=== PATIENT | male | born 1965 | race Caucasian/White ===

== ENCOUNTER 2022-11-28 03:59 | Emergency (ER) | payer BC, OTHER ==
[2022-11-28 04:07] VITALS: TEMP 97.7
[2022-11-28 05:22] LABS: African American GFR (CKD) >90 (>60 ml/min/1.73 sqM); Anion Gap 7 mmol/L; Blood Urea Nitrogen 18 mg/dL (9-20); Calcium 9.6 mg/dL (8.4-10.2); Carbon Dioxide 27 mmol/L (22-30); Chloride 104 mmol/L (98-107); Glucose 97 mg/dL (74-99); Non-African American GFR(CKD) >90 (>60 ml/min/1.73 sqM); Potassium 4.2 mmol/L (3.5-5.1); Sodium 138 mmol/L (137-145)
[2022-11-28 05:32] LABS: Basophils % (A) 0 %; Eosinophils # (A) 0.1 k/uL (0-0.7); Eosinophils % (A) 1 %; HCT 44.4 % (39.0-53.0); Lymphocytes # (A) 1.5 k/uL (1.0-4.8); Lymphocytes % (A) 14 %; MCH 31.5 pg (25.0-35.0); MCHC 33.8 g/dL (31.0-37.0); MCV 93.2 fL (80.0-100.0); Monocytes # (A) 0.7 k/uL (0-1.0); Monocytes % (A) 6 %; Neutrophils # (A) 8.8 k/uL (1.3-7.7); Neutrophils % (A) 78 %; Platelet Count 204 k/uL (150-450); RBC 4.77 m/uL (4.30-5.90); RDW 12.9 % (11.5-15.5); WBC 11.3 k/uL (3.8-10.6)
--- NOTE | 2022-11-28 06:06 | ED ---
Extremity Problem HPI - General Chief complaint: Extremity Problem,Nontraumatic Stated complaint: Blood clot in left leg Time Seen by Provider: 11/28/22 04:26 Source: patient Mode of arrival: ambulatory Limitations: no limitations - History of Present Illness Initial comments: This patient is a 57-year-old man who presents to have evaluation of pain to the left leg just distal to the knee. The patient noted that it came on last night and has been persistent, going on approximately 8 hours now. He is not recalling any type of inciting trauma. Patient indicates medial aspect of the leg just distal to the left knee. No weakness or numbness distal. He is not having any other symptoms, no chest pain, palpitations, dyspnea, hemoptysis. Denies history and risk factors for DVT. MD Complaint: extremity pain Onset/Timin -: hour(s) Location: left, lower extremity History of Same: No Severity scale (1-10): 6 Quality: aching Consistency: constant Improves with: nothing Worsens with: nothing Associated Symptoms: denies other symptoms - Related Data Previous Rx's Medication Instructions Recorded Ciprofloxacin HCl [Cipro] 500 mg PO Q12HR #14 tablet 01/06/15 Hydrocodone/Acetaminophen [[place] 1 each PO Q4HR PRN #20 tablet 01/06/15 10-325 Tablet] Naproxen [Naprosyn] 500 mg PO Q12HR #24 tab 01/06/15 Ondansetron Odt [Zofran Odt] 4 mg PO Q6HR PRN #20 tab 01/06/15 Tamsulosin [Flomax] 0.4 mg PO DAILY #5 cap 01/06/15 Ibuprofen [Motrin] 600 mg PO Q8HR PRN #20 tab 11/28/22 Allergies Allergy/AdvReac Type Severity Reaction Status Date / Time No Known Allergies Allergy Verified 11/28/22 04:03 Review of Systems ROS Statement: Those systems with pertinent positive or pertinent negative responses have been documented in the HPI. ROS Other: All systems not noted in ROS Statement are negative. Constitutional: Denies: fever, chills Respiratory: Denies: cough, dyspnea, hemoptysis Cardiovascular: Denies: chest pain, syncope Musculoskeletal: Reports: as per HPI Skin: Denies: rash Neurological: Denies: weakness, numbness, paresthesias Past Medical History Past Medical History: Blood Disorder Additional Past Medical History / Comment(s): factor V History of Any Multi-Drug Resistant Organisms: None Reported Past Surgical History: Hernia Repair, Orthopedic Surgery Additional Past Surgical History / Comment(s): hernia X6, shoulder Past Psychological History: No Psychological Hx Reported Smoking Status: Current every day smoker Past Alcohol Use History: Occasional Past Drug Use History: None Reported General Exam Limitations: no limitations General appearance: alert, in no apparent distress Respiratory exam: Present: normal lung sounds bilaterally. Absent: respiratory distress, wheezes, rales, rhonchi, stridor, accessory muscle use Cardiovascular Exam: Present: regular rate, normal rhythm, normal heart sounds. Absent: systolic murmur, diastolic murmur, rubs, gallop Left Upper Leg exam: Present: normal inspection, full ROM. Absent: tenderness, swelling Knee exam: Present: normal inspection, full ROM. Absent: tenderness, swelling Lower Leg exam: Present: normal inspection, full ROM, tenderness, swelling. Absent: abrasion, laceration, ecchymosis, deformity, crepitus, dislocation, erythema, palpable cord, Homans' sign Ankle exam: Present: normal inspection, full ROM. Absent: tenderness, swelling Foot/Toe exam: Present: normal inspection, full ROM. Absent: tenderness, swelling Neurovascular tendon exam: Present: no vascular compromise. Absent: pulse deficit, abnormal cap refill, motor deficit, sensory deficit, tendon deficit Neurological exam: Present: alert. Absent: motor sensory deficit Skin exam: Present: warm, dry, intact, normal color. Absent: rash Course Vital Signs 11/28/22 11/28/22 04:03 06:17 Temperature 97.7 F Pulse Rate 103 H 89 Respiratory 16 17 Rate Blood Pressure 196/99 180/80 O2 Sat by Pulse 98 99 Oximetry Medical Decision Making - Medical Decision Making This patient is 57-year-old man here to have evaluation of left leg pain. Screening test for DVT is run and is negative. The physical exam is not suggestive of DVT. There is tenderness to the anteromedial aspect of the upper portion of the lower leg. The differential diagnosis for the pain includes DVT for which the screening test is negative and the history is not very suggestive of, infection, but the patient does not have erythema or warmth. There is no ev idence of joint involvement as there is good range of motion and no effusion. Will start conservative therapy and have patient follow-up. Discussed return parameters, including development of fever or chills, any neurovascular signs or symptoms, worsening pain or swelling among other symptoms. Was pt. sent in by a medical professional or institution? @ -No Did you speak to anyone other than the patient for history? @ -[no Did you review nursing and triage notes? @ -[agree Were old charts reviewed? @ -[no Differential Diagnosis? @ -The differential for this leg pain includes acute traumatic injury, bursitis, cellulitis, DVT, amongst other etiologies EKG interpreted by me (3pts min.)? @ -[ X-rays interpreted by me (1pt min.)? @ - CT interpreted by me (1pt min.)? @ - U/S interpreted by me (1pt. min.)? @ -[none] What testing was considered but not performed? (CT, X-rays, U/S, labs)? Why? @ [ What meds were considered but not given? Why? @ -[none] Did you discuss the management of the patient with other professionals? @ -[No Did you reconcile home meds? @ -[no Was smoking cessation discussed for >3mins.? @ -[no Was critical care preformed (if so, how long)? @ -[none] Were there social determinants of health that impacted care today? How? (Homelessness, low income, unemployed, alcoholism, drug addiction, transportation, low edu. Level, literacy, decrease access to med. care, residential, rehab)? @ -[no Was there de-escalation of care discussed even if they declined? (Discuss DNR or withdrawal of care, Hospice)? @ -[No What co-morbidities impacted this encounter? (DM, HTN, Smoking, COPD, CAD, Cancer, CVA, Hep., AIDS, mental health diagnosis, sleep apnea, morbid obesity)? @ -[none Was patient admitted / discharged? @ -[Discharged Undiagnosed new problem with uncertain prognosis? @ -[none] Drug Therapy requiring intensive monitoring for toxicity (Heparin, Nitro, Insulin, Cardizem)? @ -[none] Were any procedures done? @ -[none] Diagnosis/symptom? @ -[Acute leg pain Acute, or Chronic, or Acute on Chronic? @ -[Acute Uncomplicated (without systemic symptoms) or Complicated (systemic symptoms)? @ -[Uncomplicated Side effects of treatment? @ -[none] Exacerbation, Progression, or Severe Exacerbation] @ -[no] Poses a threat to life or bodily function? @ -[No - Lab Data Result diagrams: 11/28/22 04:44 11/28/22 04:44 Lab Results 11/28/22 11/28/22 11/28/22 Range/Units 04:44 04:44 04:44 WBC 11.3 H (3.8-10.6) k/uL RBC 4.77 (4.30-5.90) m/uL Hgb 15.0 (13.0-17.5) gm/dL Hct 44.4 (39.0-53.0) % MCV 93.2 (80.0-100.0) fL MCH 31.5 (25.0-35.0) pg MCHC 33.8 (31.0-37.0) g/dL RDW 12.9 (11.5-15.5) % Plt Count 204 (150-450) k/uL MPV 7.0 Neutrophils % 78 % Lymphocytes % 14 % Monocytes % 6 % Eosinophils % 1 % Basophils % 0 % Neutrophils # 8.8 H (1.3-7.7) k/uL Lymphocytes # 1.5 (1.0-4.8) k/uL Monocytes # 0.7 (0-1.0) k/uL Eosinophils # 0.1 (0-0.7) k/uL Basophils # 0.0 (0-0.2) k/uL D-Dimer 0.53 (<0.60) mg/L FEU Sodium 138 (137-145) mmol/L Potassium 4.2 (3.5-5.1) mmol/L Chloride 104 (98-107) mmol/L Carbon Dioxide 27 (22-30) mmol/L Anion Gap 7 mmol/L BUN 18 (9-20) mg/dL Creatinine 0.85 (0.66-1.25) mg/dL Est GFR (CKD-EPI)AfAm >90 (>60 ml/min/1.73 sqM) Est GFR (CKD-EPI)NonAf >90 (>60 ml/min/1.73 sqM) Glucose 97 (74-99) mg/dL Calcium 9.6 (8.4-10.2) mg/dL Disposition Clinical Impression: Leg pain Disposition: HOME SELF-CARE Condition: Good Instructions (If sedation given, give patient instructions): Leg Pain (ED) Prescriptions: Ibuprofen [Motrin] 600 mg PO Q8HR PRN #20 tab PRN Reason: Pain Is patient prescribed a controlled substance at d/c from ED?: No Referrals: Lindsay Valadez MD [Primary Care Provider] - 1-2 days
[2022-11-28 06:18] VITALS: BP 180/80; PULSE 89; RESP 17
== END 2022-11-28 06:18 | disposition home or self-care (01) ==
LOC: EC 03:59
DX: M79.605 Pain in left leg (principal); F17.200 Nicotine dependence, unspecified, uncomplicated
CPT/HCPCS: 36415; 80048; 85025; 85379; 99283

== ENCOUNTER → 2024-04-18 | Outpatient (CLI) | payer OTHER ==
--- NOTE | 2024-04-18 19:57 | CA ---
Transthoracic Echo Report Name: Gideon Dyson Age: 58 Gender: M : 1965 Exam Date: 04/18/2024 13:49 Exam Location: [facility] Ht (in): 69 Wt (lb): 194 Ordering Physician: Pro Billy MD Attending/Referring Phys: Hortencia Boss [facility] Optician Apprentice Vandana Rasmussen RDCS Procedure CPT: Indications: R07.9 RIGHT SIDE CHEST PAIN R06.02 SOB Cardiac Hx: Technical Quality: Good Contrast 1: Total Dose (mL): Contrast 2: Total Dose (mL): MEASUREMENTS (Male / Female) Normal Values 2D ECHO LV Diastolic Volume MOD BP 89.0 cm??? 67 - 155 / 56 - 104 cm??? LV Systolic Volume MOD BP 37.4 cm??? 22 - 58 / 19 - 49 cm??? LV Ejection Fraction MOD BP 58.0 % >= 55 % LV Diastolic Volume MOD 4C 97.3 cm??? LV Systolic Volume MOD 4C 39.7 cm??? LV Ejection Fraction MOD 4C 59.2 % LV Diastolic Length 4C 7.9 cm LV Systolic Length 4C 6.5 cm LV Diastolic Volume MOD 2C 78.1 cm??? LV Systolic Volume MOD 2C 35.7 cm??? LV Ejection Fraction MOD 2C 54.2 % LV Diastolic Length 2C 7.6 cm LV Systolic Length 2C 6.4 cm M-MODE Aortic Root Diameter MM 3.6 cm LA Systolic Diameter MM 3.9 cm LA Ao Ratio MM 1.1 AV Cusp Separation MM 2.2 cm DOPPLER Mitral E Point Velocity 56.7 cm/s Mitral A Point Velocity 83.1 cm/s Mitral E to A Ratio 0.7 MV Deceleration Time 269.1 ms MV E' Velocity 5.4 cm/s Mitral E to MV E' Ratio 10.4 TR Peak Velocity 211.7 cm/s TR Peak Gradient 17.9 mmHg FINDINGS Left Ventricle Left ventricular ejection fraction is estimated at 55-60%. No obvious regional wall motion abnormalities. Left ventricular cavity size normal. Left ventricular wall thickness normal. Right Ventricle Normal right ventricular size and function. Right ventricular systolic pressure within normal limits. Right Atrium Normal right atrial size. Left Atrium Normal left atrial size. Mitral Valve Structurally normal mitral valve. Trace mitral regurgitation. Aortic Valve Trileaflet aortic valve. No aortic valve stenosis or regurgitation. Tricuspid Valve Structurally normal tricuspid valve. Trace tricuspid regurgitation. Pulmonic Valve Structurally normal pulmonic valve. Trace pulmonic regurgitation. Pericardium No pericardial or pleural effusion. Aorta Normal size aortic root and proximal ascending aorta. CONCLUSIONS Left ventricular ejection fraction is estimated at 55-60%. No obvious regional wall motion abnormalities. No significant valve dysfunction No significant chamber size abnormality No pericardial effusion Previewed by: Dr Goldy Ware (Electronically Signed) Final Date: 18 April 2024 19:56
== END | disposition home or self-care (01) ==
LOC: RADECHMAIN 13:36
PROVIDERS: ATTEND Family Medicine
DX: R07.9 Chest pain, unspecified (principal); R06.02 Shortness of breath
CPT/HCPCS: 93306

== ENCOUNTER → 2024-04-18 | Outpatient (CLI) | payer OTHER | END | disposition home or self-care (01) | LOC: LABWHC1 14:10 | PROVIDERS: ATTEND Nurse Practitioner Family | DX: R07.9 Chest pain, unspecified (principal); R06.02 Shortness of breath; R94.31 Abnormal electrocardiogram [ECG] [EKG] | CPT/HCPCS: 36415; 93005 ==

== ENCOUNTER 2024-05-04 05:16 | Inpatient (IN) | payer OTHER ==
[2024-05-04] MEDS: MORPHINE SULFATE 4 MG/ML SYRINGE IV STA ×2 (05:44→07:02)
--- NOTE | 2024-05-04 06:02 | XR ---
EXAMINATION TYPE: XR chest 2V DATE OF EXAM: 05/04/2024 COMPARISON: NONE HISTORY: Chest pain TECHNIQUE: Frontal and lateral views of the chest are obtained. FINDINGS: There are patchy bibasilar opacities. The cardiac silhouette size is within normal limits . The osseous structures are intact. IMPRESSION: Bibasilar acute infiltrates and/or atelectasis.
[2024-05-04 06:08] LABS: Basophils % (A) 0 %; Eosinophils # (A) 0.1 k/uL (0-0.7); Eosinophils % (A) 1 %; HCT 46.8 % (39.0-53.0); HGB 15.3 gm/dL (13.0-17.5); Lymphocytes # (A) 1.6 k/uL (1.0-4.8); Lymphocytes % (A) 12 %; MCH 31.2 pg (25.0-35.0); MCHC 32.6 g/dL (31.0-37.0); MCV 95.7 fL (80.0-100.0); Mean Platelet Volume 6.8; Monocytes # (A) 0.7 k/uL (0-1.0); Monocytes % (A) 5 %; Neutrophils # (A) 11.2 k/uL (1.3-7.7); Neutrophils % (A) 82 %; Platelet Count 249 k/uL (150-450); RBC 4.89 m/uL (4.30-5.90); RDW 12.2 % (11.5-15.5); WBC 13.7 k/uL (3.8-10.6)
[2024-05-04 06:22] LABS: ALT 24 U/L (4-49); AST 28 U/L (17-59); African American GFR (CKD) >90 (>60 ml/min/1.73 sqM); Albumin 4.6 g/dL (3.5-5.0); Alkaline Phosphatase 83 U/L (38-126); Anion Gap 9 mmol/L; Blood Urea Nitrogen 18 mg/dL (9-20); Calcium 9.9 mg/dL (8.4-10.2); Carbon Dioxide 28 mmol/L (22-30); Chloride 103 mmol/L (98-107); Glucose 105 mg/dL (74-99); Magnesium 1.8 mg/dL (1.6-2.3); Non-African American GFR(CKD) 89 (>60 ml/min/1.73 sqM); Potassium 4.2 mmol/L (3.5-5.1); Sodium 140 mmol/L (137-145); Total Bilirubin 0.4 mg/dL (0.2-1.3); Total Protein 7.3 g/dL (6.3-8.2)
[2024-05-04 06:30] LABS: INR 0.9 (<1.2); Partial Thromboplastin Time 25.8 sec (22.0-30.0); Prothrombin Time 10.3 sec (10.0-12.5)
[2024-05-04] MEDS: AZITHROMYCIN 500 MG TAB PO STA (06:58)
[2024-05-04] MEDS ORDERED: PNEUMONIA PROTOCOL UTILIZED 1 EACH MISC PO PRN (07:13)
[2024-05-04] MEDS ORDERED: ALBUTEROL NEBULIZED 2.5 MG/3 ML INHALATION PRN (07:13)
--- NOTE | 2024-05-04 07:13 | ED ---
Chest Pain HPI - General Chief Complaint: Chest Pain Stated Complaint: Chest pain Time Seen by Provider: 05/04/24 05:29 Source: patient Mode of arrival: wheelchair - History of Present Illness Initial Comments: Patient is 58-year-old man who presents with bilateral chest pain that has been coming on over the past few hours. Patient states that it reminds him of episode of pneumonia that he had proximately 4 to 5 weeks ago for which he was treated at the [facility]. The patient states there has been a little bit of a cough. The pain is sharp, severe, worse with inspiration. He has not had anginal symptoms, no diaphoresis, lightheadedness, palpitations, nausea or vomiting. MD Complaint: chest pain Onset/Timin -: hour(s) Onset: during rest Pain Location: left chest, right chest Pain Radiation: back Severity: severe Quality: sharp Consistency: constant Improves With: nothing Worsens With: inspiration Other Symptoms: cough Treatments Prior to Arrival: none - Related Data Previous Rx's Medication Instructions Recorded Albuterol Sulfate [Albuterol 1 puff PO Q4-6H #8.5 gm 05/06/24 Sulfate Hfa] Aspirin 81 mg PO DAILY tab 05/06/24 Budesonide/Formoterol Fumarate 1 puff INHALATION BID #10.2 gm 05/06/24 [Symbicort 160-4.5 Mcg Inhaler] Metoprolol Tartrate [Lopressor] 25 mg PO BID #60 tab 05/06/24 Naproxen [Naprosyn] 250 mg PO BID #10 tab 05/06/24 cefUROXime axetiL [Ceftin] 500 mg PO BID 1 Days #5 tab 05/06/24 predniSONE 10 mg PO DAILY #30 tab 05/06/24 Allergies Allergy/AdvReac Type Severity Reaction Status Date / Time No Known Allergies Allergy Verified 05/04/24 12:22 Review of Systems ROS Statement: Those systems with pertinent positive or pertinent negative responses have been documented in the HPI. ROS Other: All systems not noted in ROS Statement are negative. Constitutional: Denies: fever, chills, weakness Respiratory: Reports: cough, dyspnea. Denies: hemoptysis Cardiovascular: Reports: chest pain. Denies: palpitations, orthopnea, edema, syncope Gastrointestinal: Denies: abdominal pain, nausea, vomiting, diarrhea Genitourinary: Denies: dysuria, hematuria Musculoskeletal: Denies: back pain Skin: Denies: rash Neurological: Denies: headache, weakness Past Medical History Past Medical History: Blood Disorder Additional Past Medical History / Comment(s): factor V History of Any Multi-Drug Resistant Organisms: None Reported Past Surgical History: Hernia Repair, Orthopedic Surgery Additional Past Surgical History / Comment(s): hernia X6, shoulder, hip replacement Past Psychological History: No Psychological Hx Reported Smoking Status: Former smoker Past Alcohol Use History: Occasional Past Drug Use History: None Reported General Exam General appearance: alert, in no apparent distress Head exam: Present: atraumatic, normocephalic Eye exam: Present: normal appearance. Absent: scleral icterus, conjunctival injection ENT exam: Present: normal oropharynx Neck exam: Present: normal inspection Respiratory exam: Present: wheezes, rales. Absent: respiratory distress, rhonchi, stridor, chest wall tenderness, accessory muscle use Cardiovascular Exam: Present: regular rate, normal rhythm, normal heart sounds. Absent: systolic murmur, diastolic murmur, rubs, gallop GI/Abdominal exam: Present: soft. Absent: distended, tenderness, guarding, rebound, rigid, mass Extremities exam: Present: normal inspection, normal capillary refill. Absent: pedal edema, calf tenderness Back exam: Present: normal inspection. Absent: CVA tenderness (R), CVA tenderness (L) Neurological exam: Present: alert Skin exam: Present: warm, dry, intact, normal color. Absent: rash Course Vital Signs 05/04/24 05/04/24 05/04/24 05:19 05:32 05:34 Temperature 98.5 F Pulse Rate 85 84 Pulse Rate [ 89 Right Sitting Radial] Respiratory 18 20 Rate Blood Pressure 163/85 159/104 Blood Pressure [Left Arm] O2 Sat by Pulse 96 98 Oximetry 05/04/24 05/04/24 05/04/24 06:57 07:51 07:58 Temperature Pulse Rate 87 90 85 Pulse Rate [ Right Sitting Radial] Respiratory 24 20 Rate Blood Pressure 128/83 145/85 Blood Pressure [Left Arm] O2 Sat by Pulse 98 96 Oximetry 05/04/24 05/04/24 08:00 08:01 Temperature 97.6 F Pulse Rate 89 Pulse Rate [ 100 Right Sitting Radial] Respiratory 20 Rate Blood Pressure Blood Pressure 136/84 [Left Arm] O2 Sat by Pulse 95 Oximetry Chest Pain MDM - MDM The patient had chest x-ray that I interpreted as showing bilateral lower lobe infiltrates concerning for developing pneumonia. Was pt. sent in by a medical professional or institution ([facility], FIELD NURSE, urgent care, hospital, or fci...) When possible be specific @ -[No] Did you speak to anyone other than the patient for history (EMS, parent, family, police, friend...)? What history was obtained from this source @ -[No] Did you review nursing and triage notes (agree or disagree)? Why? @ -[I reviewed and agree with nursing and triage notes] Were old charts reviewed (outside hosp., previous admission, EMS record, old EKG, old radiological studies, urgent care reports/EKG's, fci records)? Report findings @ -[No old charts were reviewed] Differential Diagnosis (chest pain, altered mental status, abdominal pain women, abdominal pain men, vaginal bleeding, weakness, fever, dyspnea, syncope, headache, dizziness, GI bleed, back pain, seizure, CVA, palpatations, mental health, musculoskeletal)? @ -[Differential Chest Pain: Stable Angina, Unstable Angina, STEMI, NSTEMI Aortic Dissection, Pneumothorax, Musculoskeletal, Esophageal Spasm GERD, Cholecystitis, Pancreatitis, Zoster, this is not meant to be an all-inclusive list. EKG interpreted by me (3pts min.). @ -[I interpreted as above] X-rays interpreted by me (1pt min.). @ -[I interpreted as above CT interpreted by me (1pt min.). @ -[None done] U/S interpreted by me (1pt. min.). @ -[None done] What testing was considered but not performed or refused? (CT, X-rays, U/S, labs)? Why? @ -[None] What meds were considered but not given or refused? Why? @ -[None] Did you discuss the management of the patient with other professionals (professionals i.e. [facility], FIELD NURSE, lab, RT, psych nurse, addiction social worker, corporation lawyer, teacher, public relations officer, case finishing machine adjuster)? Give summary @ -[Case discussed with admitting physician and treatment recommendations incorporated Was smoking cessation discussed for >3mins.? @ -[No] Was critical care preformed (if so, how long)? @ -[No] Were there social determinants of health that impacted care today? How? (Homelessness, low income, unemployed, alcoholism, drug addiction, transportation, low edu. Level, literacy, decrease access to med. care, intermediate, rehab)? @ -[No] Was there de-escalation of care discussed even if they declined (Discuss DNR or withdrawal of care, Hospice)? DNR status @ -[No] What co-morbidities impacted this encounter? (DM, HTN, Smoking, COPD, CAD, Cancer, CVA, ARF, Chemo, Hep., AIDS, mental health diagnosis, sleep apnea, morbid obesity)? @ -[None] Was patient admitted / discharged? Hospital course, mention meds given and route, prescriptions, significant lab abnormalities, going to OR and other pertinent info. @ -[Patient is 58-year-old man presenting with chest pain and found to have bilateral lower lobe pneumonias. Patient will be admitted to have further treatment Undiagnosed new problem with uncertain prognosis? @ -[No] Drug Therapy requiring intensive monitoring for toxicity (Heparin, Nitro, Insulin, Cardizem)? @ -[No] Were any procedures done? @ -[No] Diagnosis/symptom? @ -[Acute pneumonia Acute chest pain Acute, or Chronic, or Acute on Chronic? @ -[Acute Uncomplicated (without systemic symptoms) or Complicated (systemic symptoms)? @ -[Uncomplicated Side effects of treatment? @ -[No] Exacerbation, Progression, or Severe Exacerbation? @ -[No] Poses a threat to life or bodily function? How? (Chest pain, [place], [place], pneumonia, PE, COPD, DKA, ARF, appy, cholecystitis, CVA, Diverticulitis, Homicidal, Suicidal, threat to staff... and all critical care pts) @ -[No] Disposition Clinical Impression: Pneumonia, Chest pain Disposition: ADMITTED IP TO THIS HOSP Is patient prescribed a controlled substance at d/c from ED?: No
[2024-05-04] MEDS: HYDROcodone/APAP 10-325MG 1 EACH TAB PO PRN (07:48)
[2024-05-04] MEDS: SODIUM CHLORIDE 0.9% 1,000 ML IV SCH (07:51)
[2024-05-04] MEDS: IPRATROPIUM-ALBUTEROL 3 ML NEB INHALATION SCH (07:51)
[2024-05-04] MEDS: TAMSULOSIN 0.4 MG CAP.ER.24H PO SCH (08:47)
[2024-05-04] MEDS: BUDESONIDE 1 MG/2 ML NEBU INHALATION SCH (14:43)
[2024-05-04] MEDS: METOPROLOL TARTRATE 25 MG TAB PO SCH (15:32)
[2024-05-04] MEDS: ASPIRIN 81 MG PO SCH (15:32)
[2024-05-04] MEDS: methylPREDNISolone SOD SUCCI 40 MG/ML 1 ML VIAL IV SCH (15:32)
--- NOTE | 2024-05-04 15:37 | CT ---
EXAMINATION TYPE: CT angio chest DATE OF EXAM: 05/04/2024 COMPARISON: Radiograph same day HISTORY: 58-year-old male SOB TECHNIQUE: Contiguous axial scanning of the chest after the administration of 100 mL of Isovue 370. Coronal/sagittal MIP reconstructions performed. CT DLP: 498mGycm. Automatic exposure control utilized for a dose reduction. FINDINGS: Heart is normal size with trace pericardial fluid. No flattening of the interventricular septum. Mini mal reflux of contrast into the hepatic IVC. Aorta normal caliber with conventional arch vessel branching anatomy. No thoracic lymphadenopathy meeting CT size criteria. Satisfactory opacification of pulmonary arterial system. Slight limitation due to some breathing oz on. No definite pulmonary embolus is seen. There are scattered tiny calcified granulomas noted along with mild emphysematous change. Bibasilar a irspace disease noted, right greater than left. Visualized upper abdomen shows hepatic cysts measuring up to 2.5 cm. Cholecystectomy clips. Bones: No osseous destructive process. Normal variant tiny sternal foramen. IMPRESSION: 1. No evidence for pulmonary embolus. 2. COPD with mild emphysema. 3. Bibasilar patchy airspace disease. Correlate for infectious or aspiration pneumonitis.
--- NOTE | 2024-05-04 16:57 | P.HPIM ---
History of Present Illness H&P Date: 05/04/24 Chief Complaint: Short of breath This is a pleasant 58-year-old patient who follows with Dr. Billy. 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 Patient had to be on life support. This is around 6 weeks ago. Subsequently patient did follow-up with Dr. Zelaya the talk show host here. Had some lung function test done. Patient presents with 1 day of increasing pressure across the chest. Unable to lie down. Uncomfortable. Marcell a bit warm. No cough. Denies any swelling of the legs. CT chest was ordered and PE was ruled out. Finding to take some deep breaths. No edema. Review of systems: GEN.: Tired EYES: None HEENT: None NECK: None RESPIRATORY: [As above CARDIOVASCULAR: As above GASTROINTESTINAL: None GENITOURINARY: None MUSCULOSKELETAL: None LYMPHATICS: None HEMATOLOGICAL: None PSYCHIATRY: None NEUROLOGICAL: None Social history: . Patient smoked for about 35 years stopped in 2020. 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 Physical examination: VITAL SIGNS: 100, 103, 22, 123/77, 92% room air GENERAL: BMI 28.6, sitting bed slightly anxious. EYES: Pupils equal. Conjunctiva diandra l. HEENT: External appearance of nose and ears normal, oral cavity grossly normal. NECK: JVD not raised; masses not palpable. HEART: First and second heart sounds are normal; no edema. LUNGS: Respiratory rate increased, decreased breath sounds some basal crackles. ABDOMEN: Soft, nontender, liver spleen not palpable, no masses palpable. PSYCH: Alert and oriented x3; mood and affect anxious l. MUSCULOSKELETAL:No Clubbing/cyanosis;muscles-grossly intact NEUROLOGICAL: Cranial nerves grossly intact; no facial asymmetry, power and sensation grossly intact. LYMPHATICS: No lymph nodes palpable in the axilla and neck INVESTIGATIONS, reviewed in the clinical context: Chest CTA: Scattered tiny calcified granulomas. Lung mild emphysematous changes. Bibasilar airspace disease noted right greater than left. No PE May 04 06/24/2024: White count 13.7 hemoglobin 15.3 platelets 249 sodium 140 potassium 4.2 creatinine 0.94 Troponin I less than 0.012 x 2 EKG tracing personally reviewed by me-sinus rhythm. Poor wave R wave progression. Chest x-ray film personally reviewed by me-basilar infiltrates Assessment and plan: -Patient presented acute presentation of shortness of breath chest pain. Pulm embolism ruled out. Troponins are negative. Patient also finding difficult to lie down. Differential includes unstable angina. On EKG finding is some poor R wave progression. Pericarditis also possible. Given infiltrates in the lungs though some of it this could be chronic also. Consult cardiology. Consult pulmonary. 2D echocardiogram. Check ESR, CRP. Add naproxen -Acute COPD exacerbation in a prior smoker DuoNeb. Nebulized Pulmicort. IV Solu-Medrol Care was discussed with the patient. Given the complexity and severity of patient's condition expect the patient to be in the hospital at least for 2 overnights Past Medical History Past Medical History: Blood Disorder Additional Past Medical History / Comment(s): factor V History of Any Multi-Drug Resistant Organisms: None Reported Past Surgical History: Hernia Repair, Orthopedic Surgery Additional Past Surgical History / Comment(s): hernia X6, shoulder, hip replacement Smoking Status: Former smoker Medications and Allergies Home Medications Medication Instructions Recorded Confirmed Type No Known Home Medications 05/04/24 05/04/24 History Allergies Allergy/AdvReac Type Severity Reaction Status Date / Time No Known Allergies Allergy Verified 05/04/24 12:22 Physical Exam Vitals: Vital Signs Temp Pulse Pulse Resp BP BP Pulse Ox 05/04/24 12:26 88 05/04/24 12:17 85 05/04/24 08:01 89 05/04/24 08:00 97.6 F 100 20 136/84 95 05/04/24 07:58 85 20 145/85 96 05/04/24 07:51 90 98 05/04/24 06:57 87 24 128/83 05/04/24 05:34 84 20 159/104 98 05/04/24 05:32 89 05/04/24 05:19 98.5 F 85 18 163/85 96 Intake and Output 05/03/24 05/04/24 05/04/24 22:59 06:59 14:59 Intake Total 0 Balance 0 Intake: Oral 0 Other: Weight 87.997 kg 87.997 kg Results CBC & Chem 7: 05/04/24 05:44 05/04/24 05:44 Labs: Abnormal Lab Results - Last 24 Hours (Table) 05/04/24 05/04/24 Range/Units 05:44 05:44 WBC 13.7 H (3.8-10.6) k/uL Neutrophils # 11.2 H (1.3-7.7) k/uL Glucose 105 H (74-99) mg/dL Thrombosis Risk Factor Assmnt - Choose All That Apply Any of the Below Risk Factors Present?: Yes Each Factor Represents 1 point: Age 41-60 years, Serious lung disease incl. pneumonia (< 1month) Other Risk Factors: Yes Each Risk Factor Represents 3 Points: Positive Factor V Leiden Other congenital or acquired thrombophilia - If yes, enter type in comment: No Thrombosis Risk Factor Assessment Total Risk Factor Score: 5 Thrombosis Risk Factor Assessment Level: High Risk
[2024-05-04] MEDS: LACTATED RINGERS 1,000 ML IV SCH (17:09)
[2024-05-04] MEDS: NAPROXEN 250 MG TAB PO SCH (17:43)
--- NOTE | 2024-05-05 07:19 | P.CNPUL ---
History of Present Illness Consult date: 05/05/24 Requesting physician: Blair Watkins Reason for consult: pneumonia Chief complaint: Chest pain History of present illness: Patient is a 58-year-old white male with past medical history significant for pulmonary histoplasmosis infection, factor V deficiency, and former tobacco smoker. His primary care provider is Hortencia Raphael out of Dr. Billy office in [place]. Of note, patient was recently treated approximately 4 to 5 weeks ago for bilateral pneumonia at a hospital in [place], [place]. He was sent home with antibiotics. This was a similar presentation to his current situation. Patient is complaining of intermittent chest pain that envelops the whole anterior chest. This is worse with changes in position such as leaning forward or laying down. There is associated shortness of breath. Coughing has been minimal without any sputum production. He is having intermittent fevers. Chest CTA done on arrival did not show any evidence of pulmonary embolism. There was COPD with mild emphysema, and bibasilar patchy airspace disease. CBC shows some leukocytosis with a WC count of 13.7, otherwise, unremarkable. CMP also unremarkable. Troponin less than 0.012. Patient did have an echocardiogram done recently 04/18/2024 which showed preserved left ventricular ejection fraction of 55 to 60%, no significant valvular dysfunction or pericardial effusion. EKG shows normal sinus rhythm with Q waves in V3 and V4. Patient is currently lying in bed, on room air, in no acute respiratory distress. He is afebrile. Covered on a combination of Rocephin and azithromycin. States he quit smoking back in 1999. Was recently seen in the pulmonary office by Dr. Zelaya, and was told that he has mild emphysema. Vital signs are stable. Review of Systems REVIEW OF SYSTEMS: CONSTITUTIONAL: Denies any recent significant weight loss or weight gain. A dmits intermittent fevers and fatigue. EYES: Denies change in vision. EARS, NOSE, MOUTH, THROAT: Denies headaches, denies sore throat. CARDIOVASCULAR: Denies palpitations, lightheadedness, syncopal episodes. Admits chest pain as described in HPI RESPIRATORY: See HPI GASTROINTESTINAL: Denies change in appetite, abdominal pain, nausea and vomiting, or diarrhea GENITOURINARY: Denies hematuria, denies infections. MUSKULOSKELETAL: Denies pain, denies swelling. INTEGUMENTARY: Denies rash, denies eczema. NEUROLOGICAL: Denies recent memory loss, no recent seizure activity. PSYCHIATRIC: Denies anxiety, denies depression. HEMATOLOGIC/LYMPHATIC: Denies anemia, denies enlarged lymph node Past Medical History Past Medical History: Blood Disorder Additional Past Medical History / Comment(s): factor V History of Any Multi-Drug Resistant Organisms: None Reported Past Surgical History: Hernia Repair, Orthopedic Surgery Additional Past Surgical History / Comment(s): hernia X6, shoulder, hip replacement Smoking Status: Former smoker Medications and Allergies Home Medications Medication Instructions Recorded Confirmed Type No Known Home Medications 05/04/24 05/04/24 History Allergies Allergy/AdvReac Type Severity Reaction Status Date / Time No Known Allergies Allergy Verified 05/04/24 12:22 Physical Exam Vitals: Vital Signs Temp Pulse Pulse Resp BP BP Pulse Ox 05/05/24 02:31 97.8 F 68 16 156/89 92 L 05/04/24 22:00 98.1 F 72 17 125/72 95 05/04/24 20:17 84 18 05/04/24 20:09 84 18 05/04/24 16:02 86 05/04/24 15:53 83 05/04/24 14:50 100.0 F H 103 H 22 123/77 92 L 05/04/24 12:26 88 05/04/24 12:17 85 05/04/24 08:01 89 05/04/24 08:00 97.6 F 100 20 136/84 95 05/04/24 07:58 85 20 145/85 96 05/04/24 07:51 90 98 05/04/24 06:57 87 24 128/83 Intake and Output 05/04/24 05/04/24 05/05/24 14:59 22:59 06:59 Intake Total 0 Balance 0 Intake: Oral 0 Other: Voiding Method Toilet # Voids 3 1 2 Weight 87.997 kg GENERAL EXAM: Alert, 58-year-old white male, comfortable in no apparent dist ress. HEAD: Normocephalic and atraumatic EYES: Normal reaction of pupils, equal size. NOSE: Clear with pink turbinates. THROAT: No erythema or exudates. NECK: No masses, no JVD. CHEST: No chest wall deformity. LUNGS: Equal air entry with inspiratory crackles heard in the right base. On room air. No conversational dyspnea or accessory muscle use.. CVS: S1 and S2 normal with no audible murmur, regular rhythm. No extra heart sounds ABDOMEN: No hepatosplenomegaly, active bowel sounds, no guarding or rigidity. SPINE: No scoliosis or deformity SKIN: No rashes CENTRAL NERVOUS SYSTEM: No focal deficits, tone is normal in all 4 extremities. EXTREMITIES: There is no peripheral edema, clubbing, or cyanosis. Peripheral pulses are intact. Results - Laboratory Findings CBC and BMP: 05/04/24 05:44 05/04/24 05:44 PT/INR, D-dimer PT 10.3 sec (10.0-12.5) 05/04/24 05:44 INR 0.9 (<1.2) 05/04/24 05:44 D-Dimer 0.39 mg/L FEU (<0.60) 05/04/24 05:44 Abnormal lab findings: Abnormal Labs 05/04/24 05/04/24 05/04/24 05:44 05:44 15:50 WBC 13.7 H Neutrophils # 11.2 H Glucose 105 H C-Reactive Protein Procalcitonin 0.11 H 05/05/24 03:13 WBC Neutrophils # Glucose C-Reactive Protein 6.8 H Procalcitonin - Diagnostic Findings Chest x-ray: image reviewed CT scan - chest: image reviewed Assessment and Plan Assessment: Bibasilar community-acquired pneumonia, chest CTA demonstrates bibasilar patchy airspace disease concerning for pneumonia. No evidence of PE. Acute dyspnea, secondary to above Acute leukocytosis Possible acute COPD exacerbation, however, appears stable on my evaluation History of pulmonary histoplasmosis Former tobacco smoker, reportedly quitting in 1999 History of factor V deficiency Plan: Patient's medications, labs, imaging reviewed Currently on room air Continue combination of empiric antibiotics in the form of Rocephin and azithromycin Blood cultures are pending Collect sputum culture if possible Procalcitonin 0.11 On my evaluation, COPD appears stable, patient was recently started on a combination of DuoNebs, budesonide inhalation, and IV Solu-Medrol Will continue to follow I have personally seen and examined the patient, performed the documentation and the assessment and plan as written. Number of minutes spent on the visit:20 This is a joint evaluation that was done along with the nurse practitioner. The patient is coming in with a right lower lobe pneumonia. He has a remote history of pulmonary histoplasmosis, along with systemic involvement requiring intubation mechanical ventilation and subsequent treatment with amphotericin B and Sporanox. The current presentation is more typical for a bacterial pneumonia. Will check procalcitonin level. Continue his current antibiotic coverage with Rocephin and Zithromax. Check procalcitonin level of 0.11. Obtain follow-up chest x-ray. Will continue to follow. Send histoplasma IgM titers. Bronchoscopy will be considered if needed. Time with Patient: Greater than 30
--- NOTE | 2024-05-05 07:35 | XR ---
EXAMINATION TYPE: XR chest 2V DATE OF EXAM: 05/05/2024 COMPARISON: 05/04/2024 HISTORY: 58-year-old male pneumonia TECHNIQUE: Frontal and lateral views FINDINGS: Heart normal size. Aorta and pulmonary vasculature within normal limits. Hyperinflation. Patchy opaci ties at the lower lungs remain with minimal improvement on the right. IMPRESSION: COPD with continued bibasilar infiltrates. Possible slight improvement on the right.
--- NOTE | 2024-05-05 09:47 | P.CRDCN ---
History of Present Illness History of present illness: HISTORY OF PRESENT ILLNESS: This is a 58-year-old male with a past medical history significant for histoplasmosis in 1999 requiring mechanical ventilation and former nicotine dependence. Patient does not follow with a cutter and presser. We have been asked to see the patient in consultation for chest pain. Patient examined at the bedside. Patient presented to the hospital with a chief complaint of shortness of breath. He states Sunday afternoon he began to feel short of breath. He st ates his symptoms felt similar to when he was diagnosed with a pneumonia in [place] about 1.5 months ago. He denies having a cough at home but does report having a low-grade fever. He states he has been sleeping in the chair at night for the past couple days due to his shortness of breath. He also reports having chest pain in the middle of his chest. He states the pain is worse with deep inspiration and movement. He states the pain is worse when he lays flat in bed. He denies any nausea or vomiting. Denies any dizziness. Patient used to be a smoker for 30 years but no longer smokes. He denies any history of CAD. DIAGNOSTICS: - EKG sinus mechanism with no signs of acute ischemia. Repeat EKG reveals sinus mechanism with T wave inversions inferiorly. - Chest xray bibasilar acute infiltrates and/or atelectasis. -Chest CTA: Negative for pulmonary embolism. COPD with mild emphysema. Bibasilar patchy airspace disease. Correlate for infectious or aspiration pneumonitis. - Laboratory data: WBC 13.7. Hemoglobin 15.3. Platelet count 249. D-dimer 0.39. Sodium 140. Potassium 4.2. BUN 18. Creatinine 0.94. Magnesium 1.8. Procalcitonin 0.11. Troponin negative x 2. - Current home cardiac medications include none. - Most recent echocardiogram obtained in April 2024 revealed ejection fraction 55 to 60%, trace MR REVIEW OF SYSTEMS: At the time of my exam: CONSTITUTIONAL: Denies fever or chills. HEENT: Denies blurred vision, vision changes, or eye pain. Denies hemoptysis CARDIOVASCULAR: Denies chest pain. Denies orthopnea. Denies PND. Denies palpitations RESPIRATORY: Denies shortness of breath. GASTROINTESTINAL: Denies abdominal pain. Denies nausea or vomiting. HEMATOLOGIC: Denies bleeding disorders. GENITOURINARY: Denies any blood in urine. SKIN: Denies pruitis. Denies rash. PHYSICAL EXAM: VITAL SIGNS: Reviewed. GENERAL: Well-developed in no acute distress. HEENT: Head is normocephalic. Pupils are equal, round. Sclerae anicteric. Mucous membranes of the mouth are moist. Neck supple. No JVD or thyromegaly LUNGS: Respirations even and unlabored. Lungs with bibasilar crackles. HEART: Regular rate and rhythm. S1 and S2 heard. Systolic murmur noted ABDOMEN: Soft. Nondistended. Nontender. EXTREMITIES: Normal range of motion. No clubbing or cyanosis. Peripheral pulses intact. No lower extremity edema NEUROLOGIC: Awake and alert. Oriented x 3. ASSESSMENT: Shortness of breath Bilateral pneumonia Chest pain, appears pleuritic, likely secondary to bilateral pneumonia Leukocytosis History of histoplasmosis in 1999 Former nicotine dependence PLAN: An acute coronary event has been ruled out Obtain limited echocardiogram to assess for pericardial effusion No plans for stress testing at this time Patient may follow-up postdischarge with Dr. Salazar Further recommendations pending patient course Nurse practitioner note has been reviewed by physician. Signing provider agrees with the documented findings, assessment, and plan of care documented by VASCULAR NEUROLOGIST as a scribe. Past Medical History Past Medical History: Blood Disorder Additional Past Medical History / Comment(s): factor V History of Any Multi-Drug Resistant Organisms: None Reported Past Surgical History: Hernia Repair, Orthopedic Surgery Additional Past Surgical History / Comment(s): hernia X6, shoulder, hip replacement Smoking Status: Former smoker Medications and Allergies Home Medications Medication Instructions Recorded Confirmed Type No Known Home Medications 05/04/24 05/04/24 History Allergies Allergy/AdvReac Type Severity Reaction Status Date / Time No Known Allergies Allergy Verified 05/04/24 12:22 Physical Exam Vitals: Vital Signs Temp Pulse Pulse Resp BP Pulse Ox 05/05/24 07:00 97.6 F 70 18 130/77 92 L 05/05/24 02:31 97.8 F 68 16 156/89 92 L 05/04/24 22:00 98.1 F 72 17 125/72 95 05/04/24 20:17 84 18 05/04/24 20:09 84 18 05/04/24 16:02 86 05/04/24 15:53 83 05/04/24 14:50 100.0 F H 103 H 22 123/77 92 L 05/04/24 12:26 88 05/04/24 12:17 85 Intake and Output 05/04/24 05/05/24 05/05/24 22:59 06:59 14:59 Other: Voiding Method Toilet # Voids 1 2 Results 05/04/24 05:44 05/04/24 05:44 Cardiac Enzymes 05/04/24 Range/Units 15:50 Troponin I <0.012 (0.000-0.034) ng/mL Current Medications Generic Name Dose Route Start Last Admin Trade Name Freq PRN Reason Stop Dose Admin Hydrocodone Bitart/Acetaminophen 1 each 05/04/24 07:16 05/04/24 13:14 Hydrocodone/Apap 10-325mg 1 Each Tab PO 1 each Q4HR PRN Administration Pain Albuterol Sulfate 2.5 mg 05/04/24 07:13 Albuterol Nebulized 2.5 Mg/3 Ml INHALATION RT-Q4H PRN Shortness Of Breath Or Wheezing Albuterol/Ipratropium 3 ml 05/04/24 08:00 05/04/24 20:09 Ipratropium-Albuterol 3 Ml Neb INHALATION 3 ml RT-QID ENRIQUE Administration Aspirin 81 mg 05/04/24 14:45 05/04/24 15:32 Aspirin 81 Mg PO 81 mg DAILY ENRIQUE Administration Azithromycin 500 mg 05/05/24 09:00 Azithromycin 500 Mg Tab PO 05/06/24 09:01 DAILY ENRIQUE Protocol Budesonide 1 mg 05/04/24 14:30 05/04/24 20:09 Budesonide 1 Mg/2 Ml Nebu INHALATION 1 mg RT-BID ENRIQUE Administration Ceftriaxone Sodium 2 gm/ 50 mls @ 100 mls/hr 05/05/24 09:00 Sodium Chloride IVPB 05/08/24 09:29 Q24HR ENRIQUE Protocol Lactated Ringer's 1,000 mls @ 100 mls/hr 05/04/24 17:00 05/05/24 00:03 Lactated Ringers IV 100 mls/hr .Q10H ENRIQUE Administration Methylprednisolone Sodium Succinate 40 mg 05/04/24 15:00 05/05/24 00:01 Methylprednisolone Sod Succi 40 Mg/Ml 1 Ml Vial IV 40 mg Q8HR ENRIQUE Administration Metoprolol Tartrate 25 mg 05/04/24 14:45 05/04/24 19:44 Metoprolol Tartrate 25 Mg Tab PO 25 mg BID ENRIQUE Administration Miscellaneous Information 1 each 05/04/24 07:13 Pneumonia Protocol Utilized 1 Each Misc PO ONCE PRN Per Protocol Naproxen 250 mg 05/04/24 17:00 05/05/24 00:01 Naproxen 250 Mg Tab PO 250 mg Q8H ENRIQUE Administration Intake and Output 05/04/24 05/05/24 05/05/24 22:59 06:59 14:59 Other: Voiding Method Toilet # Voids 1 2 05/04/24 05:44 05/04/24 05:44
[2024-05-05] MEDS: AZITHROMYCIN 500 MG TAB PO SCH (09:58)
--- NOTE | 2024-05-05 11:35 | CA ---
Transthoracic Echo Report Name: Gideon Dyson Age: 58 Gender: M : 1965 Exam Date: 05/05/2024 08:20 Exam Location: [facility] Ht (in): 69 Wt (lb): 194 Ordering Physician: Susan Garibay Attending/Referring Phys: [id number], [place] [employer] Jennifer Odom, OLENA Procedure CPT: Indications: CP, r/o effusion Cardiac Hx: LIMITED STUDY Technical Quality: Good Contrast 1: Total Dose (mL): Contrast 2: Total Dose (mL): MEASUREMENTS (Male / Female) Normal Values M-MODE Aortic Root Diameter MM 3.7 cm DOPPLER TR Peak Velocity 207.7 cm/s TR Peak Gradient 17.3 mmHg Right Ventricular Systolic Press 22.3 mmHg FINDINGS Left Ventricle Left ventricular ejection fraction is estimated at 60-65 %. Right Ventricle Right ventricular systolic pressure within normal limits. Right Atrium Normal right atrial size. Left Atrium Mitral Valve Structurally normal mitral valve. Mild mitral regurgitation. Aortic Valve Trileaflet aortic valve. No aortic valve stenosis or regurgitation. Tricuspid Valve Structurally normal tricuspid valve. Mild tricuspid regurgitation. Pulmonic Valve Structurally normal pulmonic valve. No pulmonic regurgitation. Pericardium No pericardial effusion. No pleural effusion. Aorta Normal size aortic root and proximal ascending aorta. CONCLUSIONS Limited echo. Normal left ventricle size and systolic function No pericardial effusion Mild mitral and tricuspid regurgitation. Previewed by: Dr. Lucille Salazar MD (Electronically Signed) Final Date: 05 May 2024 11:34
--- NOTE | 2024-05-05 17:09 | P.PN ---
Progress Note - Text Progress Note Date: 05/05/24 Chief Complaint: Short of breath This is a pleasant 58-year-old patient who follows with Dr. Billy. 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 Patient had to be on life support. This is around 6 weeks ago. Subsequently patient did follow-up with Dr. Zelaya the film editor supervisor here. Had some lung function test done. Patient presents with 1 day of increasing pressure across the chest. Unable to lie down. Uncomfortable. [place] a bit warm. No cough. Denies any swelling of the legs. CT chest was ordered and PE was ruled out. Finding to take some deep breaths. No edema. May 05: Patient doing better. Less wheezing. Less short of breath. Up and about in the room. Eating much better. Discussed with the patient. Continue current treatment plan. Limited echocardiogram did not show any pericardial effusion. Diagnosis felt to be predominantly COPD exacerbation possible pleurisy. Eating 100% Active Medications Hydrocodone Bitart/Acetaminophen (Hydrocodone/Apap 10-325mg 1 Each Tab) 1 each PO Q4HR PRN PRN Reason: Pain Last Admin: 05/04/24 13:14 Dose: 1 each Albuterol Sulfate (Albuterol Nebulized 2.5 Mg/3 Ml) 2.5 mg INHALATION RT-Q4H PRN PRN Reason: Shortness Of Breath Or Wheezing Albuterol/Ipratropium (Ipratropium-Albuterol 3 Ml Neb) 3 ml INHALATION RT-QID [facility] Last Admin: 05/05/24 15:41 Dose: 3 ml Aspirin (Aspirin 81 Mg) 81 mg PO DAILY [facility] Last Admin: 05/05/24 09:58 Dose: 81 mg Azithromycin (Azithromycin 500 Mg Tab) 500 mg PO DAILY [facility]; Protocol Stop: 05/06/24 09:01 Last Admin: 05/05/24 09:58 Dose: 500 mg Budesonide (Budesonide 1 Mg/2 Ml Nebu) 1 mg INHALATION RT-BID [facility] Last Admin: 05/05/24 08:13 Dose: 1 mg Ceftriaxone Sodium 2 gm/ (Sodium Chloride) 50 mls @ 100 mls/hr IVPB Q24HR [facility]; Protocol Stop: 05/08/24 09:29 Last Admin: 05/05/24 09:55 Dose: 100 mls/hr Lactated Ringer's (Lactated Ringers) 1,000 mls @ 100 mls/hr IV .Q10H [facility] Last Admin: 05/05/24 14:36 Dose: 100 mls/hr Methylprednisolone Sodium Succinate (Methylprednisolone Sod Succi 40 Mg/Ml 1 Ml Vial) 40 mg IV Q8HR [facility] Last Admin: 05/05/24 09:57 Dose: 40 mg Metoprolol Tartrate (Metoprolol Tartrate 25 Mg Tab) 25 mg PO BID [facility] Last Admin: 05/05/24 09:58 Dose: 25 mg Miscellaneous Information (Pneumonia Protocol Utilized 1 Each Misc) 1 each PO ONCE PRN PRN Reason: Per Protocol Naproxen (Naproxen 250 Mg Tab) 250 mg PO Q8H [facility] Last Admin: 05/05/24 09:58 Dose: 250 mg Social history: . Patient smoked for about 35 years stopped in 2020. 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 Physical examination: VITAL SIGNS: 98.3, 85, 18, 117 x 62, 94% room air GENERAL: Sitting up, looking better EYES: Pupils equal. Conjunctiva diandra l. HEENT: External appearance of nose and ears normal, oral cavity grossly normal. NECK: JVD not raised; masses not palpable. HEART: First and second heart sounds are normal; no edema. LUNGS: Respiratory rate increased, decreased breath sounds: Some wheezing ABDOMEN: Soft, nontender, liver spleen not palpable, no masses palpable. PSYCH: Alert and oriented x3; mood and affect anxious l. MUSCULOSKELETAL:No Clubbing/cyanosis;muscles-grossly intact INVESTIGATIONS, reviewed in the clinical context: May 05: ESR 8 CRP 6.8 procalcitonin 0.11 urine Legionella antigen negative Chest CTA: Scattered tiny calcified granulomas. Lung mild emphysematous ch anges. Bibasilar airspace disease noted right greater than left. No PE May 04 06/24/2024: White count 13.7 hemoglobin 15.3 platelets 249 sodium 140 potassium 4.2 creatinine 0.94 Troponin I less than 0.012 x 2 EKG tracing personally reviewed by me-sinus rhythm. Poor wave R wave progression. Chest x-ray film personally reviewed by me-basilar infiltrates Assessment and plan: -Probable pneumonia, suspect gram-negative organism IV ceftriaxone. Zithromax. -Probable pleurisy secondary to pneumonia Naproxen -Acute COPD exacerbation in a prior smoker Т[place]яна. Nebulized Pulmicort. IV Solu-Medrol Continue current treatment plan. Await input from cardiology and pulmonary. No pericardial effusion. Eating well. Past Medical History Past Medical History: Blood Disorder Additional Past Medical History / Comment(s): factor V History of Any Multi-Drug Resistant Organisms: None Reported Past Surgical History: Hernia Repair, Orthopedic Surgery Additional Past Surgical History / Comment(s): hernia X6, shoulder, hip replacement Smoking Status: Former smoker
[2024-05-06] MEDS: ONDANSETRON 4 MG/2 ML VIAL IVP PRN (06:15)
--- NOTE | 2024-05-06 07:47 | XR ---
EXAMINATION TYPE: XR chest 2V DATE OF EXAM: 05/06/2024 COMPARISON: 05/05/2024 HISTORY: 58-year-old male pneumonia TECHNIQUE: Frontal and lateral views FINDINGS: Heart normal size. Mild hyperinflation. Mild interstitial prominence is unchanged. Some patchy left b asilar opacity remains. IMPRESSION: COPD with similar patchy infiltrate at the left base. Improvement on the right.
--- NOTE | 2024-05-06 10:33 | P.PN ---
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 Patient does not follow with a biomass power plant manager. We have been asked to see the patient in consultation for chest pain. Patient examined at the bedside. Patient presented to the hospital with a chief complaint of shortness of breath. He states Sunday afternoon he began to feel short of breath. He states his symptoms felt similar to when he was diagnosed with a pneumonia in [place] about 1.5 months ago. He denies having a cough at home but does report having a low-grade fever. He states he has been sleeping in the chair at night for the past couple days due to his shortness of breath. He also reports having chest pain in the middle of his chest. He states the pain is worse with deep inspiration and movement. He states the pain is worse when he lays flat in bed. He denies any nausea or vomiting. Denies any dizziness. Patient used to be a smoker for 30 years but no longer smokes. He denies any history of CAD. DIAGNOSTICS: - EKG sinus mechanism with no signs of acute ischemia. Repeat EKG reveals sinus mechanism with T wave inversions inferiorly. - Chest xray bibasilar acute infiltrates and/or atelectasis. -Chest CTA: Negative for pulmonary embolism. COPD with mild emphysema. Bibasilar patchy airspace disease. Correlate for infectious or aspiration pneumonitis. - Laboratory data: WBC 13.7. Hemoglobin 15.3. Platelet count 249. D-dimer 0.39. Sodium 140. Potassium 4.2. BUN 18. Creatinine 0.94. Magnesium 1.8. Procalcitonin 0.11. Troponin negative x 2. - Current home cardiac medications include none. - Most recent echocardiogram obtained in April 2024 revealed ejection fraction 55 to 60%, trace MR 05/06/2024 Patient examined this morning at the bedside. Patient denies chest pain or pressure. He reports improvement in his shortness of breath. Limited echocardiogram completed revealing normal left ventricular size and systolic function with no pericardial effusion. PHYSICAL EXAM: VITAL SIGNS: Reviewed. GENERAL: Well-developed in no acute distress. HEENT: Head is normocephalic. Pupils are equal, round. Sclerae anicteric. Mucous membranes of the mouth are moist. Neck supple. No JVD or thyromegaly LUNGS: Respirations even and unlabored. Lungs with bibasilar crackles, improved from yesterday. HEART: Regular rate and rhythm. S1 and S2 heard. Systolic murmur noted ABDOMEN: Soft. Nondistended. Nontender. EXTREMITIES: Normal range of motion. No clubbing or cyanosis. Peripheral pulses intact. No lower extremity edema NEUROLOGIC: Awake and alert. Oriented x 3. ASSESSMENT: Shortness of breath Bilateral pneumonia Chest pain, appears pleuritic, likely secondary to bilateral pneumonia Leukocytosis History of histoplasmosis in 1999 Former nicotine dependence PLAN: Continue treatment of pneumonia per primary medicine and internal medicine Currently stable from a cardiac standpoint Patient may follow-up postdischarge with Dr. Salazar We will sign off. Please reconsult if needed. Nurse practitioner note has been reviewed by physician. Signing provider agrees with the documented findings, assessment, and plan of care documented by CHEMICAL INSTRUMENTATION OFFICER as a scribe. Objective - Vital Signs Vital signs: Vital Signs Temp 98.2 F 05/06/24 07:43 Pulse 72 05/06/24 08:46 Resp 18 05/06/24 07:43 BP 176/90 05/06/24 07:43 Pulse Ox 98 05/06/24 07:43 FiO2 Intake & Output 05/05/24 05/06/24 05/06/24 18:59 06:59 18:59 Intake Total 354 Balance 354 Intake: Oral 354 Other: Voiding Method Toilet # Voids 2 1 - Labs CBC & Chem 7: 05/04/24 05:44 05/04/24 05:44 Labs: Microbiology - Last 24 Hours (Table) 05/04/24 06:55 Blood Culture - Preliminary Blood 05/04/24 06:40 Blood Culture - Preliminary Blood
[2024-05-06 14:51] VITALS: BP 132/66; TEMP 98.8
[2024-05-06 16:10] VITALS: PULSE 55; RESP 16
--- NOTE | 2024-05-06 18:42 | P.DS ---
Providers Date of admission: 05/04/24 07:17 Expected date of discharge: 05/06/24 Attending physician: Blair Watkins Consults: 05/04/24 22:24 Consult Physician Routine Consulting Provider: Parish Zelaya Reason/Comments: known to you Do you want consulting provider notified?: Yes, Notify in am Primary care physician: [facility] Course: Chief Complaint: Short of breath This is a pleasant 58-year-old patient who follows with Dr. Billy. 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 Patient had to be on life support. This is around 6 weeks ago. Subsequently patient did follow-up with Dr. Zelaya the cook helper fruit here. Had some lung function test done. Patient presents with 1 day of increasing pressure across the chest. Unable to lie down. Uncomfortable. [place] a bit warm. No cough. Denies any swelling of the legs. CT chest was ordered and PE was ruled out. Finding to take some deep breaths. No edema. May 05: Patient doing better. Less wheezing. Less short of breath. Up and about in the room. Eating much better. Discussed with the patient. Continue current treatment plan. Limited echocardiogram did not show any pericardial effusion. Diagnosis felt to be predominantly COPD exacerbation possible pleurisy. Eating 100% May 06: Breathing much better. Chest pain nearly resolved. Patient felt to have pneumonia/COPD exacerbation element of pleurisy. Cleared by cardiology. Up and about in the room. Patient wants to follow-up with Dr. Rojas outpatient. Discussed at length with the patient. Will discharge on Symbicort albuterol as needed. Prednisone taper. Discussion and discharge planning more than 35 minutes Social history: . Patient smoked for about 35 years stopped in 2020. 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 Physical examination: VITAL SIGNS: 98.8, 76, 18, 132 x 66, 98% room air GENERAL: Comfortable EYES: Pupils equal. Conjunctiva diandra l. HEENT: External appearance of nose and ears normal, oral cavity grossly normal. NECK: JVD not raised; masses not palpable. HEART: First and second heart sounds are normal; no edema. LUNGS: Respiratory rate i normal, improved air entry ABDOMEN: Soft, nontender, liver spleen not palpable, no masses palpable. PSYCH: Alert and oriented x3; mood and affect anxious l. MUSCULOSKELETAL:No Clubbing/cyanosis;muscles-grossly intact INVESTIGATIONS, reviewed in the clinical context: May 05: ESR 8 CRP 6.8 procalcitonin 0.11 urine Legionella antigen negative Chest CTA: Scattered tiny calcified granulomas. Lung mild emphysematous changes. Bibasilar airspace disease noted right greater than left. No PE May 04 06/24/2024: White count 13.7 hemoglobin 15.3 platelets 249 sodium 140 potassium 4.2 creatinine 0.94 Troponin I less than 0.012 x 2 EKG tracing personally reviewed by me-sinus rhythm. Poor wave R wave p rogression. Chest x-ray film personally reviewed by me-basilar infiltrates Assessment and plan: -Probable pneumonia, suspect gram-negative organism: Better IV ceftriaxone. Zithromax. Complete 5 more doses of Ceftin -Probable pleurisy secondary to pneumonia Naproxen -Acute COPD exacerbation in a prior smoker: Better DuoNeb. Nebulized Pulmicort. IV Solu-Medrol Discharged on Symbicort and albuterol as needed Follow-up with Dr. Rojas outpatient Disposition: Home Past Medical History Past Medical History: Blood Disorder Additional Past Medical History / Comment(s): factor V History of Any Multi-Drug Resistant Organisms: None Reported Past Surgical History: Hernia Repair, Orthopedic Surgery Additional Past Surgical History / Comment(s): hernia X6, shoulder, hip replacement Smoking Status: Former smoker Plan - Discharge Summary Discharge Rx Participant: No New Discharge Prescriptions: New Albuterol Sulfate [Albuterol Sulfate Hfa] 1 puff PO Q4-6H #8.5 gm Aspirin 81 mg PO DAILY tab cefUROXime axetiL [Ceftin] 500 mg PO BID 1 Days #5 tab Metoprolol Tartrate [Lopressor] 25 mg PO BID #60 tab Naproxen [Naprosyn] 250 mg PO BID #10 tab predniSONE 10 mg PO DAILY #30 tab Budesonide/Formoterol Fumarate [Symbicort 160-4.5 Mcg Inhaler] 1 puff INHALATION BID #10.2 gm Discharge Medication List Albuterol Sulfate [Albuterol Sulfate Hfa] 1 puff PO Q4-6H #8.5 gm 05/06/24 [Rx] Aspirin 81 mg PO DAILY tab 05/06/24 [Rx] Budesonide/Formoterol Fumarate [Symbicort 160-4.5 Mcg Inhaler] 1 puff INHALATION BID #10.2 gm 05/06/24 [Rx] Metoprolol Tartrate [Lopressor] 25 mg PO BID #60 tab 05/06/24 [Rx] Naproxen [Naprosyn] 250 mg PO BID #10 tab 05/06/24 [Rx] cefUROXime axetiL [Ceftin] 500 mg PO BID 1 Days #5 tab 05/06/24 [Rx] predniSONE 10 mg PO DAILY #30 tab 05/06/24 [Rx] Follow up Appointment(s)/Referral(s): Lucille Salazar MD [STAFF PHYSICIAN] - 1 Week Pro Billy MD [Primary Care Provider] - 1-2 days Odette Rojas MD [STAFF PHYSICIAN] - 10 Days Activity/Diet/Wound Care/Special Instructions: dc if okayed by dr rojas Discharge Disposition: LEFT AGAINST MEDICAL ADVICE
[2024-05-10 17:45] LABS: Histoplasma Abs by Mycelia, CF <1:8 (<1:8)
== END 2024-05-06 17:05 | disposition left against medical advice (07) | DRG 190 ==
LOC: EC 05:16 → 6NMEDSUR 07:16 → OBSVTOIN 07:17 → 6NMEDSUR 07:36
PROVIDERS: ADMIT Hospitalist; ATTEND Hospitalist
DX: J44.1 Chronic obstructive pulmonary disease with (acute) exacerbation (principal); J15.69 Pneumonia due to other Gram-negative bacteria; D68.2 Hereditary deficiency of other clotting factors; J44.0 Chronic obstructive pulmonary disease with (acute) lower respiratory infection; R09.1 Pleurisy; Z53.29 Procedure and treatment not carried out because of patient's decision for other reasons; Z96.649 Presence of unspecified artificial hip joint; Z87.891 Personal history of nicotine dependence; Z79.899 Other long term (current) drug therapy; Z79.1 Long term (current) use of non-steroidal anti-inflammatories (NSAID); Z87.09 Personal history of other diseases of the respiratory system; Z79.51 Long term (current) use of inhaled steroids
CPT/HCPCS: 36415; 71046; 71275; 80053; 83605; 83735; 84145; 84484; 85025; 85379; 85610; 85652; 85730; 86140; 86698; 87040; 87449; 93005; 93308; 94640; 94760; 96365; 96375; 96376; 99285